=== PATIENT | female | born 1950 ===

== ENCOUNTER 2025-02-15 06:31 | Day surgery (SDC) | payer OTHER ==
[2025-02-07 09:20] LABS: BASO % 0.2 % (0.1-1.2); EOS # 0.22 (0.04-0.54); EOS % 2.7 % (0.7-7.0); LYMPH # 2.87 (1.18-3.74); LYMPH % 35.5 % (19.3-53.1); MEAN PLATELET VOLUME 9.40 fl (9.4-12.4); MONO # 0.51 (0.24-0.82); MONO % 6.3 % (4.7-12.5); NEUT # 4.43 (1.56-6.13); NEUT % 54.9 % (34.0-71.1); RED CELL DISTRIBUTION WIDTH 12.9 % (11.6-14.4)
[2025-02-07 09:40] VITALS: BP 140/70
[2025-02-07 09:40] LABS: INR 1.0
[2025-02-07 10:04] LABS: URINE APPEARANCE Clear; URINE BILIRRUBIN Negative (NEGATIVE); URINE BLOOD Negative; URINE COLOR Yellow; URINE GLUCOSE Negative (NEGATIVE); URINE KETONE Negative (NEGATIVE); URINE LEUKOCYTE Trace; URINE NITRATE Negative; URINE PROTEIN Negative (NEGATIVE); URINE UROBILINOGEN 0.2 E.U./dl
[2025-02-07 10:08] LABS: URINE BACTERIA 76.7 uL (0.0-1933); URINE WBC 3.6 uL (0.0-23.2)
[2025-02-07 10:15] LABS: URINE CAST 0.58 uL (0.0-1.40); URINE EPITHELIAL CELLS 1.2 uL (0.0-38.8); URINE RBC 1.7 uL (0.0-20.8)
[2025-02-07 11:05] LABS: ALT/SGPT 13.0 U/L (12-78); AST/SGOT 12.0 U/L (15-37); BILIRUBIN TOTAL 0.74 mg/dL (0.3-1.2); BUN CREA RATIO 32.0 (7.0-25.0); CREATININE SERUM 0.87 mg/dL (0.55-1.02); GFR 63.47; GLOBULINA 4.0 G/DL (2.4-3.5); GLUCOSE FASTING 95.0 mg/dL (65-100); OSMOLALITY SERUM 292.0 MOSM/KG (275-295)
[~2025-02-15] VITALS: Ht 160 cm; Wt 83.9 kg
[~2025-02-15 06:31] MED LIST: ACTOS45 MG PO; FOSAMAX70 MG PO; GRALISE600 MG PO; HUMULIN 70100 UNIT/2; LIPITOR20 MG PO; LOSARTAN-HCTZ1 EAC1 PO; PENTOXIFYLLINE400 MG PO
[2025-02-15] MEDS ORDERED: CEFAZOLIN SODIUM 1,000 MG VIAL IV ONE (09:45)
[2025-02-15] MEDS ORDERED: BUPIVACAINE HCL 30 ML VIAL IJ ONE (09:45)
[2025-02-15] MEDS ORDERED: SUGAMMADEX SODIUM 200 MG/2 ML VIAL IV ONE (09:45)
== END 2025-02-15 12:10 | disposition home or self-care (01) ==
LOC: CIR.AMB 06:31
PROVIDERS: ATTEND Orthopaedic Surgery Hand Surgery
DX: M67.441 Ganglion, right hand (principal); R22.31 Localized swelling, mass and lump, right upper limb; M18.11 Unilateral primary osteoarthritis of first carpometacarpal joint, right hand